=== PATIENT | male | born 1970 | race Caucasian/White ===

== ENCOUNTER → 2017-07-28 10:18 | Outpatient (CLI) | payer OTHER, SELFPAY ==
[2017-07-28 13:11] LABS: AST(SGOT) 33 U/L (15-37); Alanine Aminotransfer ALT/SGPT 42 U/L (16-61); Cholesterol 152 mg/dL (200); Creatinine, Serum 1.06 mg/dL (0.70-1.30); EST Glomerular Filtration Rate 79 mL/min (>60); Est Glom Filt Rate - Afr Amer 96 mL/min (>60); GGTP 31 U/L (15-85); Glucose 77 mg/dL (74-106); High Density Lipoprotein 88 mg/dL; Uric Acid 6.2 mg/dL (3.5-7.2)
== END ==
PROVIDERS: Family Provider Family Medicine; PCP Family Medicine; Visit Provider Family Medicine
DX: Z00.00 Encounter for general adult medical examination without abnormal findings (principal); M79.675 Pain in left toe(s); Z72.89 Other problems related to lifestyle
CPT/HCPCS: 36415; 82465; 82565; 82947; 82977; 83718; 84450; 84460; 84550

== ENCOUNTER → 2018-07-29 | Outpatient (CLI) | payer SELFPAY ==
[2014-03-03 09:33] VITALS: BMI 25.0
== END | disposition home or self-care (01) ==
PROVIDERS: Family Provider Family Medicine; PCP Family Medicine; Referring Provider Family Medicine; Visit Provider Family Medicine
DX: Z00.00 Encounter for general adult medical examination without abnormal findings (principal); Z12.5 Encounter for screening for malignant neoplasm of prostate
CPT/HCPCS: 36415; 84153; G0103

== ENCOUNTER 2018-10-05 06:50 | Day surgery (SDC) | payer SELFPAY ==
[2018-10-05] VITALS (8 sets, daily range): BP systolic 89–124; BP diastolic 54–86; PULSE 56–75; RESP 16–18; TEMP 36.5–36.7; O2SAT 94–99; BMI 26.6
[2018-10-05] MEDS: Lactated Ringers 1,000 ML 100 ML IV (07:36)
--- NOTE | 2018-10-05 07:45 | H&P.OPEN ---
History of Present Illness Date of Admission: 10/05/18 The patient is a 48 year old M here for screening colonoscopy. Patient reports he is never had a colonoscopy in the past. He is denying any abdominal pain or blood in his stool. He denies any family history of colon cancer. Past Medical/Surgical History - Planned Operation Planned Operative Procedure/s: COLONOSCOPY Date of Operative Procedure: 10/05/18 Permit Signed: Yes S.O.S: No Is This Patient Having a Total Joint: No - Previous Hospitalizations/Surgeries HX Hospitalizations: No Any Problems With Anesthesia: No You/Your Family Experience Fever (Hyperthermia) With Anes: No Cholinesterase deficiency: No - Cardiovascular Hx Chest Pain within Last 2 months: No Hx of Irregular Heartbeat and/or Afib: No Hx Heart Attack: No Hx Congestive Heart Failure: No Hx Rheumatic Fever: No Hx Hypertension: No Hx Internal Defibrillator: No Hx Pacemaker: No Hx Cardiac Catheterization: No Hx Cardiac Surgery/Stents/Etc.: No Hx Stress Test: No HX Edema: No Hx Pain in Legs when Walking/Leg Cramps: No - Respiratory Chronic Cough: No HX of Shortness of Breath: No Hoarseness: No Hx Chronic Obstructive Pulmonary Disease (COPD): No Hx Asthma: No Hx Emphysema: No Hx Sleep Apnea: No Hx Oxygen Use at Home: No Hx Respiratory Tract Infection/Cold (presently): No Do You Snore Loudly (louder than talking or can be heard): No Do You Often Feel Tired/ Fatigued/ Sleepy Dring Daytime?: No Has Anyone Observed You Stop Breathing During Sleep?: No Result (for STOP score): Negative Hx Smoking: Yes Smoking Status: Current every day smoker - Gastrointestinal Hx Gastroesophageal Reflux: No Hx Gastrointestinal Disorders: No Hx Gastrointestinal Bleed: No Hx Ulcer: No Hx Hiatal Hernia: No Difficulty Chewing/Swallowing: No Recent Onset of Swallowing Problems: No Special diet followed at home: No Hx Unplanned Weight Loss of 20#: No HX Unplanned Weight Gain of 20#: No - Neurological Hx Seizures: No HX Syncope/Blackout Spells/Unconsciousness: No Hx CVA/Stroke: No Hx Transient Ischemic Attacks (TIA): No Hx Multiple Sclerosis: No Hx Parkinson's Disease: No Hx Head/Neck Injury: No Hx Headaches: No Hx Back Injury/Pain: Yes - [employer]S [employer] Recent Onset of Speech Difficulty: No Restless Legs: No Does patient have nerve stimulator: No - Blood Disorder Hx Leukemia: No Bleeding Tendencies: No Hx Deep Vein Thrombosis: No Hx High Cholesterol: No Blood Transmitted Disease: No Hx Hepatitis: No Hx Cirrhosis: No Hx Anemia: No Hx Blood Disorders: No - Musculoskeletal Hx Arthritis: Yes Hx Rheumatoid Arthritis: No Hx Gout: No Recent Onset of an Orthopedic Problem: No - Endocrine Hx Diabetes: No Thyroid Disease: No Hx Steroid Therapy: No - Psycho/Social Hx Substance Use: No Hx Alcohol Use: Yes - 6-8 BEERS DAILY Hx Anxiety: No Hx Depression: No Mental Illness: No Hx Dementia: No - Miscellaneous Hx Cancer: No Recent Exposure to Contagious Disease: No Active MRSA: No Hx of C-Diff: No Any Loose Teeth: No Additional information pertinent to anesthesia:: SMOKES 1PPD Allergies No Known Allergies Allergy (Verified 10/04/18 10:33) - Discharge Is Pt Admitted From a Skilled Nursing, or a Care Home: No Who Could Help: STEPHANIE After D/C, Where Do you Plan to Go: Return Home - Physical Exam General: Alert, Oriented x3 Neck: No JVD Lungs: Normal air movement Cardiovascular: Regular rate, Regular Rhythm Abdomen: Soft, Non Tender, Non-Distended Vital Signs Temp Pulse Resp BP Pulse Ox 98.1 F 75 16 124/86 H 99 10/05/18 07:20 10/05/18 07:20 10/05/18 07:20 10/05/18 07:20 10/05/18 07:20 Oxygen Delivery Method Room Air Weight: 185 lb 6.54 oz Body Mass Index (BMI) 26.6 Assessment/Plan 48-year-old male for screening colonoscopy 1. I explained endoscopy in detail to the patient. I explained the risks including but not limited to stroke or heart attack with anesthesia, perforation of the GI tract, bleeding, infection. I explained that any of these could necessitate further emergency surgery. The patient understands and all questions were answered sufficiently. The patient wishes to proceed with procedure. Chapin Edwards MD Pager: [facility] [address] [place] [address], [address] [place] [address] Office: Surgery Risks - Colonoscopy Risks Include but are not Limited To: Risks include but are not limited to: Bleeding, perforation requiring further surgery, inability to complete colonoscopy requiring barium enema.
--- NOTE | 2018-10-05 08:19 | OP.ENDO_ITS ---
10/05/2018 Nathaniel Salazar [address] [place] [address] Re : Colonoscopy procedure for Nick Walls Dear Dr. Salazar This procedure was performed on Friday, October 05, 2018. My impressions and recommendations are as follows: Impressions : - The entire examined colon is normal on direct and retroflexion views. - No specimens collected. Recommendations : - Discharge patient to home. - Resume previous diet. - Continue present medications. - Repeat colonoscopy in 10 years for screening purposes. My findings are described in the full procedure note, which is enclosed. If I can be of further assistance, please feel free to contact me at Doctor phone number(s): , Work: . Sincerely, Chapin Edwards MD 10/05/2018 8:19:19 AM This report has been signed electronically.
== END 2018-10-05 09:34 | disposition home or self-care (01) ==
LOC: EN 06:51 → AC 06:54
PROVIDERS: Family Provider Family Medicine; PCP Family Medicine; Referring Provider Family Medicine; Visit Provider Surgery
PROC: 0DJD8ZZ Inspection of Lower Intestinal Tract, Via Natural or Artificial Opening Endoscopic (ICD-10-PCS; CPT 45378; principal; 2018-10-05 07:55)
DX: Z12.11 Encounter for screening for malignant neoplasm of colon (principal); F17.200 Nicotine dependence, unspecified, uncomplicated
CPT/HCPCS: 45378; J7120

== ENCOUNTER → 2020-09-11 09:39 | Outpatient (CLI) | payer SELFPAY ==
[2018-10-05 07:20] VITALS: BMI 26.6
[2020-09-11 12:02] LABS: Platelet Count 241 K/mm3 (150-450)
[2020-09-11 12:27] LABS: Cholesterol 169 mg/dL (200); Creatinine, Serum 0.92 mg/dL (0.70-1.30); EST Glomerular Filtration Rate 91 mL/min (>60); Est Glom Filt Rate - Afr Amer 111 mL/min (>60); High Density Lipoprotein 61 mg/dL
== END ==
PROVIDERS: PCP Family Medicine; Referring Provider Family Medicine; Visit Provider Family Medicine
DX: Z00.00 Encounter for general adult medical examination without abnormal findings (principal); Z72.0 Tobacco use
CPT/HCPCS: 36415; 82465; 82565; 83718; 85014; 85018; 85049

== ENCOUNTER 2020-11-17 20:24 | Emergency (ER) | payer SELFPAY ==
[2020-11-17 20:25] VITALS: BP 159/123; PULSE 109; RESP 18; TEMP 38.3; O2SAT 94; BMI 26.4
--- NOTE | 2020-11-17 20:30 | RAD_ITS ---
STUDY: X-RAY CHEST REASON FOR EXAM: Male, 50 years old. cough TECHNIQUE: AP COMPARISON: None. FINDINGS: Amorphous opacity in the left infrahilar left lower lobe. There is no demonstrated pleural abnormality. Normal size heart. Normal mediastinum and cat. Normal visualized pulmonary arteries. Normal visualized aortic arch and descending thoracic aorta. Normal visualized thoracic spine. Normal visualized ribs, clavicles, and shoulders. There is no demonstrated abnormality of the visualized soft tissue structures of the upper abdomen. RAD/Chest 1 View (Portable) IMPRESSION: Early left lower lobe infiltrate. Electronically Signed: Flaco Frazier MD ([place]) at 20:47 EDT , Service support ,
[2020-11-17 20:38] VITALS: BP 136/88; PULSE 101; RESP 23; TEMP 38.3; O2SAT 94
[2020-11-17 20:42] VITALS: O2SAT 94
--- NOTE | 2020-11-17 21:25 | EX.ED.DYSGE1 ---
HPI History of Present Illness Chief Complaint: General Illness Informant: patient Narrative Narrative: Patient states is at about 4 days of symptoms. He started with some congestion and runny nose but and then developed into a cough. No sputum production. He states he is not short of breath. His appetite is down but he is able to eat and drink. No nausea vomiting or diarrhea. No abdominal pain. He has felt hot and cold but has not checked his temperature. He has not had Covid immunizations. He has no known exposure to Covid. He has some myalgias but just slight. He is a smoker and was counseled to quit. No chronic medical conditions No routine medicines No allergies Prior surgery or for broken bones Positive smoker, works full-time lives independently. PFSH PFSH Medical History no medical history Home Medications levofloxacin 750 mg PO DAILY #6 tab 11/17/20 [Rx Last Taken Unknown] Allergy/AdvReac Type Severity Reaction Status Date / Time No Known Allergies Allergy Verified 11/17/20 20:37 Surgical History no surgical history Social History Smoking Status: Current every day smoker tobacco type: cigarettes ROS ROS ED Constitutional Constitutional ED: Reports chills and subjective Eyes Eyes: Denies blurry vision or change in vision ENT ENT ED: Reports rhinorrhea; Denies sore throat Cardiovascular Cardiovascular: Denies chest pain or palpitations Respiratory/Chest Respiratory/Chest: Reports cough; Denies dyspnea on exertion or sputum Gastrointestinal Gastrointestinal: Denies abdominal pain, diarrhea, nausea or vomiting Genitourinary Genitourinary ED: Denies dysuria Musculoskeletal Musculoskeletal: Reports myalgias Integumentary Denies rash Neurologic Neurologic: Denies headache(s), paresthesias or weakness Endocrine Endocrinology: Denies polydipsia or polyuria Allergic/Immunologic Allergic/Immunologic ED: Denies urticaria EXAM Physical Exam Const Vital Signs: 11/17/20 20:25 11/17/20 20:38 11/17/20 20:42 Temperature 100.9 F H 100.9 F H Temperature Source Temporal Oral Pulse Rate 109 H 101 H Respiratory Rate 18 23 H Respiratory Effort Short of Breath Respiratory Depth Normal Respiratory Pattern Normal Blood Pressure 159/123 H 136/88 H Blood Pressure Mean 135 104 Pulse Ox 94 94 Oxygen Delivery Method Room Air Room Air Room Air Positive well nourished General Appearance ED: NAD; Negative for pallor HEENT HEENT Narrative: Oropharynx is clear. No sinus tenderness. Negative for trauma or tenderness Eyes PERRL General Eye ED: Negative for pale conjunctiva or scleral icterus Neck No no JVD Chest Wall inspection of chest normal Resp normal respiratory effort Resp Narrative: Breathing is easy and unlabored. Saturations are 94 to 96% on room air. At first I heard a little bit of wheeze on the left but after deep breath it cleared. No rhonchi no rales. No pain with a deep breath. Cardio regular rate and regular rhythm GI normal to inspection, nondistended, normoactive bowel sounds, non-tender and non-distended Palpation: soft Back/Spine no CVA tenderness Neuro oriented x3 Sensorium / Orientation: alert Psych mental status grossly normal Skin no rashes or lesions noted and no wounds General Skin Exam: Negative for jaundice or pallor MDM MDM MDM Narrative Medical decision making narrative: Patient's Covid is negative. His x-ray is showing an early left base infiltrate. Patient does have symptoms that can be consistent with Covid but this could be pneumonia. With these findings I will treat with antibiotics. I explained to the patient that this still could be Covid. If he still having symptoms or worsening symptoms or worsening dyspnea he needs to return. Radiography Diagnostic Testing: Clinical Impression(s) from Imaging Studies Chest X-Ray 11/17/20 20:30 IMPRESSION: Early left lower lobe infiltrate. Electronically Signed: Flaco Frazier MD ([place]) at 20:47 EDT , Service support , Discharge Plan Triage Chief Complaint: General Illness ED Provider: Julien Calix Dx/Rx/DC Orders Clinical Impression: Community acquired pneumonia Instructions: ED Pneumonia (Adult) Prescriptions: New levofloxacin 750 mg tablet 750 mg PO DAILY Qty: 6 RF: 0 Primary Care Provider: Nathaniel Salazar Referrals: Nathaniel Salazar MD [Primary Care Provider] - 1 Week if not improving Disposition Disposition: Home, Self Care
[2020-11-17] MEDS: levoFLOXacin 750 MG Tablet PO (21:36)
[2020-11-17 21:37] VITALS: BP 127/90; PULSE 93; O2SAT 96
== END 2020-11-17 21:42 | disposition home or self-care (01) ==
PROVIDERS: Emergency Provider Emergency Medicine; PCP Family Medicine
DX: J18.9 Pneumonia, unspecified organism (principal); F17.210 Nicotine dependence, cigarettes, uncomplicated
CPT/HCPCS: 71045; 87426; 99283

== ENCOUNTER → 2020-11-20 13:36 | Outpatient (CLI) | payer SELFPAY ==
[2020-11-20 14:58] LABS: Absolute Lymphocyte Count 1.03 X10^3/uL (0.83-4.51); Absolute Neutrophil Count 1.7 X10^3/uL (2.0-7.7); Basophil# 0.01 X10^3/uL; Basophil% 0.3 % (0-1); Hematocrit 44.2 % (40-54); Hemoglobin 15.7 g/dL (13.0-16.5); Lymphocyte # 1.03 X10^3/ul (0.83-4.51); Lymphocyte % 34.3 % (19-41); Mean Corp Hgb Conc 35.5 g/dL (32-36); Mean Corpuscular Volume 95.7 fL (80-94); Mean Platelet Vol. 9.7 fl (6.2-12.0); Monocyte# 0.27 X10^3/uL; NRBC Flagged by Analyzer 0 % (0-5); Neutrophil # 1.68 X10^3/uL (2.7-7.7); Neutrophil % 56.1 % (47-70); POSITIVE MORPHOLOGY YES; Platelet Count 152 K/mm3 (150-450); RBC Distribution Width CV 11.9 % (11.6-14.6); RBC Distribution Width SD 41.4 fl (35.1-43.9); Red Blood Count 4.62 M/mm3 (4.6-6.2)
[2020-11-20 15:03] LABS: Differential Indicated SCAN CRITERIA MET
[2020-11-20 15:27] LABS: ALB/GLOB Ratio 0.7 RATIO (0.9-2.4); AST(SGOT) 51 U/L (15-37); Alanine Aminotransfer ALT/SGPT 36 U/L (16-61); Albumin, Serum 2.9 g/dL (3.2-5.0); Alkaline Phosphatase 76 U/L (45-117); Anion Gap 8 (5-15); BUN 10 mg/dL (7-18); BUN/Creat Ratio 8.9 RATIO (10-20); Chloride 88 mmol/L (98-107); Creatinine, Serum 1.12 mg/dL (0.70-1.30); EST Glomerular Filtration Rate 73 mL/min (>60); Est Glom Filt Rate - Afr Amer 89 mL/min (>60); Globulin 4.2 g/dL (2.2-4.2); Glucose 97 mg/dL (74-106); Magnesium 2.4 mg/dL (1.6-2.6); Potassium 3.6 mmol/L (3.5-5.1); Protein, Total 7.1 g/dL (6.4-8.2); Sodium Level 126 mmol/L (136-145)
[2020-11-20 15:39] LABS: Atypical Lymphocyte RARE %; Differential Comment SCANNED
== END ==
PROVIDERS: PCP Family Medicine; Referring Provider Family Medicine; Visit Provider Family Medicine
DX: R53.81 Other malaise (principal); R53.83 Other fatigue; R19.7 Diarrhea, unspecified
CPT/HCPCS: 36415; 80053; 83735; 85025; 86140; 87493; 87506

== ENCOUNTER → 2020-11-23 11:16 | Outpatient (CLI) | payer SELFPAY ==
[2020-11-23 15:24] LABS: ALB/GLOB Ratio 0.6 RATIO (0.9-2.4); AST(SGOT) 38 U/L (15-37); Alanine Aminotransfer ALT/SGPT 27 U/L (16-61); Albumin, Serum 2.6 g/dL (3.2-5.0); Alkaline Phosphatase 69 U/L (45-117); Anion Gap 7 (5-15); BUN 9 mg/dL (7-18); BUN/Creat Ratio 8.6 RATIO (10-20); Calcium,Total 8.2 mg/dL (8.5-10.1); Chloride 93 mmol/L (98-107); Creatinine, Serum 1.05 mg/dL (0.70-1.30); EST Glomerular Filtration Rate 79 mL/min (>60); Est Glom Filt Rate - Afr Amer 95 mL/min (>60); Globulin 4.3 g/dL (2.2-4.2); Glucose 91 mg/dL (74-106); Potassium 3.7 mmol/L (3.5-5.1); Protein, Total 6.9 g/dL (6.4-8.2); Sodium Level 131 mmol/L (136-145)
== END ==
PROVIDERS: PCP Family Medicine; Referring Provider Family Medicine; Visit Provider Family Medicine
DX: R19.7 Diarrhea, unspecified (principal)
CPT/HCPCS: 36415; 80053

== ENCOUNTER 2020-11-24 12:38 | Emergency (ER) | payer OTHER, SELFPAY ==
[2020-11-24 12:39] VITALS: BP 129/85; PULSE 98; RESP 15; TEMP 36.9; O2SAT 95; BMI 24.4
--- NOTE | 2020-11-24 14:24 | RAD_ITS ---
STUDY: X-RAY CHEST REASON FOR EXAM: Male, 50 years old. COUGH TECHNIQUE: Single view of the chest was obtained COMPARISON: 11/17/2020 FINDINGS: Right upper lobe airspace disease seen since previous examination. Patchy infiltrates in the lung bases. Ill-defined infiltrates in the left upper lobe. No pneumothorax. No pleural effusion. IMPRESSION: Patchy bilateral pulmonary infiltrates concerning for multifocal pneumonia predominant in the right upper lobe Electronically Signed: Norman Dean MD at 15:44 EDT Tel , Service support , RAD/Chest 1 View (Portable)
[2020-11-24 14:25] VITALS: RESP 18; O2SAT 95
--- NOTE | 2020-11-24 15:39 | EDS_ITS ---
HPI History of Present Illness Chief Complaint: General Illness Informant: patient Narrative Narrative: Patient is a 50-year-old male presenting with generalized malaise and concern for dehydration. Patient started having symptoms on 13 November, 11 days ago. He was seen in the ER on the when he reported respiratory symptoms, cough and decreased appetite. He states he was diagnosed with pneumonia and had a negative Covid test. He notes he was feeling better but is continued to have poor oral intake and has a very limited diet otherwise he has vomiting. He was having diarrhea but that since resolved. He saw his PCP last week who did blood work and started on salt tablets for hyponatremia. Patient states he did not tolerate the salt tablets and they made him feel worse and vomit. He states overall he is feeling better and his cough is improving. He does not feel lightheaded denies any chest pain. No further fevers. He just thinks he needs some IV fluids and that will help his immune system and get him better. PFSH PFSH Medical History no medical history Home Medications famotidine [Pepcid] 20 mg PO BID #30 tab 11/24/20 [Rx Last Taken Unknown] ondansetron HCl [Zofran] 4 mg PO Q6H PRN #14 tab 11/24/20 [Rx Last Taken Unknown] Allergy/AdvReac Type Severity Reaction Status Date / Time No Known Allergies Allergy Verified 11/24/20 14:20 Social History Smoking Status: Current every day smoker tobacco type: cigarettes ROS ROS ED Constitutional Constitutional ED: Reports malaise; Denies chills or fever(s) Eyes Eyes: Denies blurry vision or loss of vision ENT ENT ED: Denies rhinorrhea or sore throat Cardiovascular Cardiovascular: Denies chest pain or dizziness Respiratory/Chest Respiratory/Chest: Reports cough and sputum; Denies dyspnea or dyspnea on exertion Gastrointestinal Gastrointestinal: Reports diarrhea, nausea and vomiting Genitourinary Genitourinary ED: Denies dysuria or hematuria Musculoskeletal Musculoskeletal: Denies arthralgias or myalgias Integumentary Denies rash or wounds Neurologic Neurologic: Denies focal weakness or headache(s) Psychiatric Psychiatric: Denies anxiety or behavioral changes EXAM Physical Exam Const Vital Signs: 11/24/20 12:39 11/24/20 14:25 11/24/20 16:58 Temperature 98.5 F 97.9 F Temperature Source Temporal Temporal Pulse Rate 98 97 Respiratory Rate 15 18 18 Blood Pressure 129/85 H 108/67 Blood Pressure Mean 99 80 Pulse Ox 95 95 95 Oxygen Delivery Method Room Air Room Air Room Air Positive well nourished and well developed General Appearance ED: well developed HEENT Reports TM's clear and dry mucous membranes HEENT Narrative: Retracted left tympanic membrane Tympanic Membrane ED: Yes TM's clear Mouth ED: Yes dry mucous membranes Mouth: dry mucous membranes Eyes PERRL and EOMs intact bilaterally Neck no lymphadenopathy and supple Chest Wall inspection of chest normal Resp normal respiratory effort Resp Narrative: Scattered crackles throughout, no increased respiratory effort Cardio regular rate, regular rhythm and no murmurs GI normal to inspection, nondistended, normoactive bowel sounds and non-tender Extremity normal to inspection General Extremety ED: Negative for edema General Extremity: Negative for edema Neuro oriented x3 Sensorium / Orientation: alert Motor Exam: Negative for general weakness Psych mental status grossly normal Skin no rashes or lesions noted MDM MDM MDM Narrative Medical decision making narrative: Patient evaluated for concern for dehydration and generalized malaise. He has had a respiratory illness for the past week. Patient overall is well-appearing. He has diffuse crackles in his lungs and clinically I suspect that he recently had Covid even though he had a negative test couple days ago. CBC is normal. BMP shows a recurrent hyponatremia of 130 however it slightly improved from his baseline. Potassium is mildly low at 3.4. Kidney function is normal. Chest x-ray shows multifocal infiltrates. Again I suspect this is from viral pneumonia. While his chest x-ray seems to worsen symptomatically he is improved, he does not have a leukocytosis, fever or hypoxia so I do not think this is a bacterial pneumonia. I do not think further antibiotics are indicated at this time. Patient is given IV fluids and as well as Pepcid and Zofran. He has improvement of his symptoms. He will be discharged home with a prescription for Pepcid and Zofran. Patient is counseled on signs and symptoms requiring return to the emergency room. Patient verbalizes agreement and understand this plan. Patient discharged home in stable and improved condition. Lab Data Attestation: I reviewed the patient's lab results. Labs: Laboratory Results - last 24 hr 11/24/20 11/24/20 15:50 15:50 WBC 5.6 RBC 4.10 L Hgb 14.2 Hct 39.4 L MCV 96.1 H MCH 34.6 H MCHC 36.0 RDW Std Deviation 41.1 RDW Coeff of Terence 11.9 Plt Count 295 MPV 9.5 Immature Gran % (Auto) 0.500 Neut % (Auto) 67.8 Lymph % (Auto) 16.5 L [place] % (Auto) 14.0 H Eos % (Auto) 0.7 Baso % (Auto) 0.5 Absolute Neuts (auto) 3.8 Absolute Lymphs (auto) 0.93 Nucleated RBC % 0 Differential Comment SCANNED Atypical Lymphocytes RARE Sodium 130 L Potassium 3.4 L Chloride 95 L Carbon Dioxide 28.0 Anion Gap 7 BUN 8 Creatinine 0.90 Estim Creat Clear Calc 105.38 Est GFR (MDRD) Af Amer 114 Est GFR (MDRD) Non-Af 95 BUN/Creatinine Ratio 8.9 L Glucose 115 H Calcium 8.2 L Total Bilirubin 0.70 AST 38 H ALT 28 Alkaline Phosphatase 81 Total Protein 7.3 Albumin 2.5 L Globulin 4.8 H Albumin/Globulin Ratio 0.5 L Lipase 30 L Radiography Chest X-Ray - ED: 1 View, Read by ED Physician, Read by Radiologist, Right Infiltrate and Left Infiltrate Diagnostic Testing: Clinical Impression(s) from Imaging Studies Chest X-Ray 11/24/20 14:24 Discharge Plan Triage Chief Complaint: General Illness ED Provider: Nikkie Starkey Dx/Rx/DC Orders Clinical Impression: Dehydration with hyponatremia, Post viral syndrome Instructions: ED Dehydration (Adult), ED Hyponatremia Prescriptions: New ondansetron HCl [Zofran] 4 mg tablet 4 mg PO Q6H PRN (Reason: nausea and vomiting) Qty: 14 RF: 0 famotidine [Pepcid] 20 mg tablet 20 mg PO BID Qty: 30 RF: 0 Primary Care Provider: Nathaniel Salazar Referrals: Nathaniel Salazar MD [Primary Care Provider] - Activity Restrictions/Additional Instructions: I strongly suspect you had Covid 19 pneumonia last week and you are recovered from that. Please follow-up with your primary care doctor as your sodium level is still low. Increase your salt intake Disposition Disposition: Home, Self Care Discharge Date/Time: 11/24/20 17:43
[2020-11-24] MEDS: 0.9% Normal Saline 1,000 ML 1000 ML IV (15:48)
[2020-11-24] MEDS: Ondansetron 4 MG/2 ML Vial IV (15:48)
[2020-11-24 15:57] LABS: Absolute Lymphocyte Count 0.93 X10^3/uL (0.83-4.51); Absolute Neutrophil Count 3.8 X10^3/uL (2.0-7.7); Basophil# 0.03 X10^3/uL; Basophil% 0.5 % (0-1); Eosinophil# 0.04 X10^3/uL; Eosinophils% 0.7 % (0-5); Hematocrit 39.4 % (40-54); Hemoglobin 14.2 g/dL (13.0-16.5); Lymphocyte # 0.93 X10^3/ul (0.83-4.51); Lymphocyte % 16.5 % (19-41); Mean Corpuscular Hgb 34.6 pg (27.0-32.0); Mean Corpuscular Volume 96.1 fL (80-94); Mean Platelet Vol. 9.5 fl (6.2-12.0); Monocyte# 0.79 X10^3/uL; NRBC Flagged by Analyzer 0 % (0-5); Neutrophil # 3.81 X10^3/uL (2.7-7.7); Neutrophil % 67.8 % (47-70); POSITIVE MORPHOLOGY YES; Platelet Count 295 K/mm3 (150-450); RBC Distribution Width CV 11.9 % (11.6-14.6); RBC Distribution Width SD 41.1 fl (35.1-43.9); White Blood Count 5.6 K/mm3 (4.4-11.0)
[2020-11-24] MEDS: Famotidine 200 MG/20 ML MDV 20 MG in 0.9% Normal Saline (Pres. free 8 ML 300 MG IV (15:58)
[2020-11-24 16:00] LABS: Differential Indicated SCAN CRITERIA MET
[2020-11-24 16:20] LABS: ALB/GLOB Ratio 0.5 RATIO (0.9-2.4); AST(SGOT) 38 U/L (15-37); Alanine Aminotransfer ALT/SGPT 28 U/L (16-61); Albumin, Serum 2.5 g/dL (3.2-5.0); Alkaline Phosphatase 81 U/L (45-117); Anion Gap 7 (5-15); BUN 8 mg/dL (7-18); BUN/Creat Ratio 8.9 RATIO (10-20); Calcium,Total 8.2 mg/dL (8.5-10.1); Chloride 95 mmol/L (98-107); EST Glomerular Filtration Rate 95 mL/min (>60); Est Glom Filt Rate - Afr Amer 114 mL/min (>60); Estimated Creatinine Clearance 105.38 ml/min; Globulin 4.8 g/dL (2.2-4.2); Glucose 115 mg/dL (74-106); Lipase 30 U/L (73-393); Potassium 3.4 mmol/L (3.5-5.1); Protein, Total 7.3 g/dL (6.4-8.2); Sodium Level 130 mmol/L (136-145)
[2020-11-24 16:22] LABS: Atypical Lymphocyte RARE %; Differential Comment SCANNED
[2020-11-24 16:58] VITALS: BP 108/67; PULSE 97; RESP 18; TEMP 36.6; O2SAT 95
[2020-11-24 17:15] VITALS: O2SAT 93
== END 2020-11-24 17:43 | disposition home or self-care (01) ==
PROVIDERS: Emergency Provider Emergency Medicine; PCP Family Medicine
DX: E86.0 Dehydration (principal); E87.1 Hypo-osmolality and hyponatremia; B34.9 Viral infection, unspecified; F17.210 Nicotine dependence, cigarettes, uncomplicated
CPT/HCPCS: 71045; 80053; 83690; 85025; 87426; 94760; 96361; 96374; 96375; 99283; J7030; A4216; J2405; J3490

== ENCOUNTER 2021-03-04 08:34 | Emergency (ER) | payer OTHER, SELFPAY ==
[2021-03-04 08:35] VITALS: BP 179/125; PULSE 98; RESP 16; TEMP 36.3; O2SAT 98; BMI 26.4
--- NOTE | 2021-03-04 09:21 | CT_ITS ---
STUDY: CT ABDOMEN AND PELVIS WITH CONTRAST REASON FOR EXAM: Male, 50 years old. 2 week history of epigastric pain with nausea and vomiting. RADIATION DOSAGE (If Supplied By Facility): CTDIvol = ( 15.13 ) mGy, DLP = ( 849.87 ) mGycm TECHNIQUE: Transaxial images were obtained from the dome of the diaphragm to the symphysis pubis with oral contrast. Oral and amp; IV Gastrografin and amp; 100mL Isovue-300 was administered. Sagittal and coronal images were reconstructed. Individualized dose optimization techniques were used for this CT. COMPARISON: None. FINDINGS: The visualized lung bases are unremarkable. The visualized portions of the heart are within normal limits. There is decreased attenuation of the liver consistent with steatosis. Mildly distended gallbladder. Normal spleen. Minimally increased markings in the region of the head of the pancreas. Early pancreatitis should be ruled out. Normal bilateral adrenal glands. Normal right kidney. Normal left kidney. Normal visualized stomach. Normal small intestine. There are scattered colonic diverticula consistent with diverticulosis. The appendix is visualized and appears normal. Normal abdominal aorta. Normal inferior vena cava. Normal retroperitoneum. Normal urinary bladder. Normal abdominal wall. Normal osseous structures. CT/Abdomen/Pelvis WITH Contrast IMPRESSION: Questionable early pancreatitis in the head of the pancreas. Mildly distended gallbladder. Fatty infiltration of the liver. Electronically Signed: Lv Argueta MD at 11:15 EST , Service support ,
--- NOTE | 2021-03-04 09:21 | EX.ED.DYSGE1 ---
HPI History of Present Illness Chief Complaint: Abd Pain Informant: patient Narrative Narrative: 50-year-old [place] gentleman presenting to the emergency room with upper abdominal pain and vomiting. He tells me that ever since he had Covid about 3 months ago he has not been doing well. He notes in particular that in the morning when he drinks something he vomits. After he vomits he does not feel too bad. But there have been times during the day that he eats and vomits. He states that he is lost about 15 pounds. Several weeks ago he went saw his primary care doctor and he was started on Carafate and famotidine in addition to mirtazapine. The latter he states was to help him sleep and reduce stress. The Carafate and famotidine have since run out. He states that the mirtazapine gives him bad dreams and so he did not take it yesterday. He has not revisited with his doctor regarding the continuation of symptoms. States that he was not in any hurry so he came to the emergency department to get checked out real good. No black or bloody stools. Patient is a poor historian did not bring his medications with him and so needed to pool resources to get a decent picture of what has happened in the past few weeks. PFSH PFSH Home Medications famotidine [Pepcid] 20 mg PO BID #30 tab 11/24/20 [Rx Last Taken Unknown] ondansetron HCl [Zofran] 4 mg PO Q6H PRN #14 tab 11/24/20 [Rx Last Taken Unknown] Allergy/AdvReac Type Severity Reaction Status Date / Time No Known Allergies Allergy Verified 03/04/21 08:37 Social History Smoking Status: Former smoker ROS ROS ED Constitutional Constitutional ED: Reports weight loss; Denies chills Eyes Eyes: Denies change in vision or diplopia ENT ENT ED: Denies ear pain, rhinorrhea or sore throat Cardiovascular Cardiovascular: Denies chest pain, orthopnea, palpitations or racing heartbeat Respiratory/Chest Respiratory/Chest: Denies cough, dyspnea or orthopnea Gastrointestinal Gastrointestinal: Reports abdominal pain, nausea and vomiting; Denies diarrhea Genitourinary Genitourinary ED: Denies dysuria, hematuria or urinary frequency Musculoskeletal Musculoskeletal: Denies arthralgias or myalgias Integumentary Denies abscess or rash Neurologic Neurologic: Denies headache(s) or weakness Psychiatric Psychiatric: Denies anxiety, depression, suicidal ideation or suicidal thoughts Endocrine Endocrinology: Denies polydipsia, polyphagia or polyuria Allergic/Immunologic Allergic/Immunologic ED: Denies mouth swelling, tongue swelling or urticaria EXAM Physical Exam Const Vital Signs: 03/04/21 08:35 03/04/21 11:06 Temperature 97.4 F L Temperature Source Temporal Pulse Rate 98 Respiratory Rate 16 16 Blood Pressure 179/125 H Blood Pressure Mean 143 Pulse Ox 98 Oxygen Delivery Method Room Air Positive well nourished and well developed General Appearance ED: well developed HEENT Reports normocephalic, head/scalp atraumatic, TM's clear and moist mucous membranes Negative for trauma Tympanic Membrane ED: Yes TM's clear Eyes PERRL and EOMs intact bilaterally Neck no lymphadenopathy, supple and no JVD Resp normal respiratory effort and clear to auscultation bilaterally Cardio regular rate, regular rhythm and no murmurs GI normal to inspection, nondistended, normoactive bowel sounds and non-tender Palpation: soft Back/Spine no CVA tenderness and normal ROM Extremity normal to inspection General Extremety ED: Negative for edema General Extremity: Negative for edema Neuro oriented x3 and CN's II-XII intact bilaterally Sensorium / Orientation: alert Motor Exam: strength 5/5 throughout Psych mental status grossly normal Mood & Affect: Negative for depressed or tearful Skin no rashes or lesions noted and no wounds MDM MDM MDM Narrative Medical decision making narrative: Basic blood work was normal lipase [address] then pelvis with oral and IV contrast does not demonstrate anything to explain his symptoms. I do not think he has pancreatitis. He has early satiety and some discomfort with eating solid foods. He may benefit from an EGD. As far something to help him sleep better at night think that is best handled through his primary care doctor. Lab Data Attestation: I reviewed the patient's lab results. Labs: Laboratory Results - last 24 hr 03/04/21 03/04/21 09:34 09:34 WBC 7.7 RBC 4.51 L Hgb 15.4 Hct 43.7 MCV 96.9 H MCH 34.1 H MCHC 35.2 RDW Std Deviation 47.9 H RDW Coeff of Terence 13.3 Plt Count 241 MPV 9.2 Immature Gran % (Auto) 0.400 Neut % (Auto) 62.2 Lymph % (Auto) 27.2 [place] % (Auto) 8.4 Eos % (Auto) 1.2 Baso % (Auto) 0.6 Absolute Neuts (auto) 4.8 Absolute Lymphs (auto) 2.10 Nucleated RBC % 0 Sodium 136 Potassium 3.8 Chloride 104 Carbon Dioxide 24.0 Anion Gap 8 BUN 12 Creatinine 1.27 Estim Creat Clear Calc 74.68 Est GFR (MDRD) Af Amer 76 Est GFR (MDRD) Non-Af 63 BUN/Creatinine Ratio 9.4 L Glucose 125 H Calcium 9.3 Total Bilirubin 1.50 H AST 20 ALT 16 Alkaline Phosphatase 84 Total Protein 8.2 Albumin 3.9 Globulin 4.3 H Albumin/Globulin Ratio 0.9 Lipase 47 L Radiography Diagnostic Testing: Clinical Impression(s) from Imaging Studies Abdomen/Pelvis CT 03/04/21 09:21 IMPRESSION: Questionable early pancreatitis in the head of the pancreas. Mildly distended gallbladder. Fatty infiltration of the liver. Electronically Signed: Lv Argueta MD at 11:15 EST , Service support , Discharge Plan Triage Chief Complaint: Abd Pain ED Provider: Sebas Natarajan Dx/Rx/DC Orders Clinical Impression: Vomiting, Weight loss Prescriptions: No Action ondansetron HCl [Zofran] 4 mg tablet 4 mg PO Q6H PRN (Reason: nausea and vomiting) Qty: 14 RF: 0 famotidine [Pepcid] 20 mg tablet 20 mg PO BID Qty: 30 RF: 0 Primary Care Provider: Nathaniel Salazar Referrals: Nathaniel Salazar MD [Primary Care Provider] - As soon as possible Friend,DO Juan [STAFF PHYSICIAN] - As soon as possible Disposition Disposition: Home, Self Care
[2021-03-04] MEDS: 0.9% Normal Saline 1,000 ML 1000 ML IV (09:33)
[2021-03-04 09:43] LABS: Absolute Neutrophil Count 4.8 X10^3/uL (2.0-7.7); Basophil# 0.05 X10^3/uL; Basophil% 0.6 % (0-1); Eosinophil# 0.09 X10^3/uL; Eosinophils% 1.2 % (0-5); Hematocrit 43.7 % (40-54); Hemoglobin 15.4 g/dL (13.0-16.5); Lymphocyte % 27.2 % (19-41); Mean Corp Hgb Conc 35.2 g/dL (32-36); Mean Corpuscular Hgb 34.1 pg (27.0-32.0); Mean Corpuscular Volume 96.9 fL (80-94); Mean Platelet Vol. 9.2 fl (6.2-12.0); Monocyte# 0.65 X10^3/uL; Monocyte% 8.4 % (0-10); NRBC Flagged by Analyzer 0 % (0-5); Neutrophil % 62.2 % (47-70); Platelet Count 241 K/mm3 (150-450); RBC Distribution Width CV 13.3 % (11.6-14.6); RBC Distribution Width SD 47.9 fl (35.1-43.9); Red Blood Count 4.51 M/mm3 (4.6-6.2); White Blood Count 7.7 K/mm3 (4.4-11.0)
[2021-03-04 10:04] LABS: ALB/GLOB Ratio 0.9 RATIO (0.9-2.4); AST(SGOT) 20 U/L (15-37); Alanine Aminotransfer ALT/SGPT 16 U/L (16-61); Albumin, Serum 3.9 g/dL (3.2-5.0); Alkaline Phosphatase 84 U/L (45-117); Anion Gap 8 (5-15); BUN 12 mg/dL (7-18); BUN/Creat Ratio 9.4 RATIO (10-20); Calcium,Total 9.3 mg/dL (8.5-10.1); Chloride 104 mmol/L (98-107); Creatinine, Serum 1.27 mg/dL (0.70-1.30); EST Glomerular Filtration Rate 63 mL/min (>60); Est Glom Filt Rate - Afr Amer 76 mL/min (>60); Estimated Creatinine Clearance 74.68 ml/min; Globulin 4.3 g/dL (2.2-4.2); Glucose 125 mg/dL (74-106); Lipase 47 U/L (73-393); Potassium 3.8 mmol/L (3.5-5.1); Protein, Total 8.2 g/dL (6.4-8.2); Sodium Level 136 mmol/L (136-145)
[2021-03-04 11:06] VITALS: RESP 16
[2021-03-04 11:57] VITALS: PULSE 74; RESP 16; O2SAT 98
== END 2021-03-04 11:58 | disposition home or self-care (01) ==
PROVIDERS: Emergency Provider Emergency Medicine; PCP Family Medicine; Visit Provider Emergency Medicine
DX: R11.2 Nausea with vomiting, unspecified (principal); Z87.891 Personal history of nicotine dependence; R10.10 Upper abdominal pain, unspecified; R63.4 Abnormal weight loss
CPT/HCPCS: 74177; 80053; 83690; 85025; 96360; 99282; J7030; Q9967; A4216

== ENCOUNTER 2021-03-07 08:55 | Outpatient (CLI) | payer OTHER, SELFPAY ==
[2021-03-12 12:47] LABS: H. PYLORI STOOL AG Negative (Negative)
== END 2021-03-07 23:59 | disposition short-term general hospital (02) ==
LOC: MFPLAB 08:56 → LABSPEC 09:05
PROVIDERS: PCP Family Medicine; Referring Provider Family Medicine; Visit Provider Registered Nurse
DX: K29.70 Gastritis, unspecified, without bleeding (principal)

== ENCOUNTER → 2021-07-03 | Outpatient (CLI) | payer SELFPAY, OTHER ==
--- NOTE | 2021-07-03 06:36 | MRI_ITS ---
STUDY: MR MRCP WITHOUT CONTRAST REASON FOR EXAM: Male, 50 years old. abdominal pain, [place] TECHNIQUE: Standard MRCP technique was utilized. Three-dimensional reconstruction images of the biliary tree. COMPARISON: None. FINDINGS: Gall Bladder: Normal with no distention or demonstrated fixed intraluminal filling defect. Cystic duct: Normal with no demonstrated fixed filling defect. Intrahepatic ducts: Normal visualized intrahepatic ducts with no demonstrated fixed filling defect, dilation or stricture. Common hepatic duct: Normal with no demonstrated fixed filling defect, dilation or stricture. Common bile duct: Normal with no demonstrated fixed filling defect, dilation or stricture. Pancreatic duct: Normal with no demonstrated fixed filling defect, dilation or stricture. Simple cyst of the left kidney. No required imaging follow-up needed given high likelihood of benign nature. MRI/MRCP Abdomen without Contrast IMPRESSION: Normal MR Cholangiopancreatography (MRCP). Electronically Signed: Flaco Frazier MD ([place]) at 16:01 EDT Reading Location ID and State: [place] , Service support ,
--- NOTE | 2021-07-03 06:45 | RAD_ITS ---
EXAM: XR Orbits Clearance FB HISTORY: Pre MRI clearance TECHNIQUE: XR Orbits Clearance FB COMPARISON: None. LIMITATIONS: None. FINDINGS: 2 views of the orbits were obtained. Dental amalgam identified. No orbital radiopaque foreign body is identified. No acute facial bone fracture. No fluid levels within the paranasal sinuses. RAD/Orbits for Foreign Body IMPRESSION: No orbital radiopaque foreign body identified. Electronically Signed: Jatin Xie MD at 7:11 EDT ,
== END | disposition home or self-care (01) ==
PROVIDERS: PCP Family Medicine; Referring Provider Internal Medicine Gastroenterology; Visit Provider Internal Medicine Gastroenterology
DX: R10.9 Unspecified abdominal pain (principal); E78.89 Other lipoprotein metabolism disorders
CPT/HCPCS: 70030; 74181

== ENCOUNTER → 2021-09-26 | Outpatient (CLI) | payer OTHER, SELFPAY ==
[2021-09-26 17:57] LABS: Alanine Aminotransfer ALT/SGPT 64 U/L (16-61); Cholesterol 179 mg/dL (200); Creatinine, Serum 1.14 mg/dL (0.70-1.30); EST Glomerular Filtration Rate 71 mL/min (>60); Est Glom Filt Rate - Afr Amer 86 mL/min (>60); High Density Lipoprotein 74 mg/dL; PSA,Total - Annual Screen 0.78 ng/mL (0.00-4.00)
== END | disposition home or self-care (01) ==
PROVIDERS: PCP Family Medicine; Referring Provider Family Medicine; Visit Provider Family Medicine
DX: Z00.00 Encounter for general adult medical examination without abnormal findings (principal)
CPT/HCPCS: 36415; 82247; 82465; 82565; 83718; 84153; 84460; G0103